=== PATIENT | female | born 1980 | race Caucasian/White ===

== ENCOUNTER 2016-06-21 18:03 | Inpatient (IN) | payer OTHER ==
[~2016-06-21] VITALS: Ht 157.5 cm; Wt 82.6 kg
[~2016-06-21 18:03] MED LIST: NAPR550 PO; ONDA1TAB16 PO; Z.0.NO CURRENT MEDS
[2016-06-21] MEDS ORDERED: DINOPROSTONE 10 MG VAG INSERT VAGINAL ONE (19:45)
[2016-06-21] MEDS ORDERED: SODIUM CHLORIDE 0.9% FLUSH 5 ML FLUSH IV FLUSH PRN (19:45)
[2016-06-21 20:12] VITALS: BP 113/59; PULSE 96
[2016-06-21 20:14] VITALS: RESP 18
[2016-06-21] MEDS ORDERED: OXYTOCIN 30 UNITS 500ML PREMIX IV ONE (20:15)
[2016-06-21] MEDS ORDERED: CITRIC ACID-SODIUM CITRATE LIQ 30 ML UDC PO SCH (20:15)
[2016-06-21] MEDS ORDERED: LACTATED RINGER'S 1000 ML BOLUS IV PRN (20:15)
[2016-06-21] MEDS ORDERED: NS 1000 ML XX PRN (20:15)
[2016-06-21] MEDS ORDERED: LIDOCAINE HCL 1% 50 ML VIAL INFIL PRN (20:15)
[2016-06-21] MEDS ORDERED: LIDOCAINE HCL 1% 50 ML VIAL I-DERMAL PRN (20:15)
[2016-06-21] MEDS ORDERED: NS 500 ML BOLUS IV PRN (20:15)
[2016-06-21] MEDS ORDERED: NS 1000 ML IV PRN (20:15)
[2016-06-21] MEDS ORDERED: MINERAL OIL 10 ML VIAL TOP PRN (20:15)
[2016-06-21] MEDS ORDERED: ONDANSETRON HCL 4 MG/2 ML VIAL IV PRN (20:15)
[2016-06-21] MEDS ORDERED: LACTATED RINGER'S 1000 ML IV SCH (20:15)
[2016-06-21 20:24] LABS: AUTOMATED NEUTROPHIL # 8.4 TH/MM3 (1.8-7.7); BASOPHIL % 0.3 % (0.0-2.0); EOSINOPHIL # 0.3 TH/MM3 (0-0.4); HEMATOCRIT 31.3 % (35.0-46.0); HEMO FLAGS DIFF FINAL; LYMPH % 11.6 % (9.0-44.0); LYMPHOCYTE # 1.2 TH/MM3 (1.0-4.8); MEAN CELL VOLUME 85.8 FL (80.0-100.0); MEAN CORPUSCULAR HEMOGLOBIN 28.9 PG (27.0-34.0); MEAN CORPUSCULAR HGB CONC 33.7 % (32.0-36.0); NEUT % 80.1 % (16.0-70.0); PLATELET COUNT 158 TH/MM3 (150-450); RED BLOOD COUNT 3.65 MIL/MM3 (4.00-5.30); RED CELL DISTRIBUTION WIDTH 14.7 % (11.6-17.2); WHITE BLOOD COUNT 10.5 TH/MM3 (4.0-11.0)
[2016-06-21 20:53] LABS: BACTERIA, URINE RARE /hpf; BLOOD, URINE NEG (NEG); COMMENT (UR) CULT NOT INDICATED; CULTURE IF INDICATED CULT NOT INDICATED; GLUCOSE,URINE NEG (NEG); KETONE, URINE NEG (NEG); MUCUS URINE FEW /lpf (OCC); NITRITE,URINE NEG (NEG); SQUAMOUS EPITHELIAL CELL URINE 3 /hpf (0-5); URINE COLOR YELLOW (YELLW/STRAW)
[2016-06-21] MEDS ORDERED: SODIUM CHLORIDE 0.9% FLUSH 5 ML FLUSH IV FLUSH SCH (21:00)
[2016-06-22 00:14] VITALS: RESP 18
[2016-06-22] MEDS ORDERED: fentaNYL 2MCG-BUPIV 0.125% INJ 100 ML ONE (00:14)
[2016-06-22] MEDS ORDERED: ePHEDrine/NS 50 MG/5 ML SYR IV PRN (00:30)
[2016-06-22] MEDS ORDERED: NO SYSTEM NARCOTICS XX PRN (00:30)
[2016-06-22] MEDS ORDERED: DO NOT ADMINISTER ANTICOAGULANTS XX PRN (00:30)
[2016-06-22] MEDS ORDERED: fentaNYL 2MCG-BUPIV 0.125% 100 ML EPIDURAL SCH (00:30)
[2016-06-22] MEDS ORDERED: OXYTOCIN 30 UNITS/NS 500ML PREMIX IV SCH (07:00)
--- NOTE | 2016-06-22 08:38 | MH ---
cc: ARTIE RICHARDSON MD DATE OF ADMISSION: 06/21/2016 HISTORY OF PRESENT ILLNESS She is 35 years old and 4, para 3, intrauterine at 39 weeks. care with [place] unremarkable. Group B strep negative. Estimated weight on ultrasound today is 8 pounds 12 ounces. KEN is 5.9. PAST OB HISTORY Significant for one vaginal delivery at 36 weeks. Baby was 7 pounds 15 ounces, in 2002 and 2005, a vaginal delivery at 38 weeks, baby was 9 pounds, in 2007 vaginal delivery at 37 weeks. The baby was 8 pounds. GYNECOLOGIC HISTORY Unremarkable. PAST MEDICAL HISTORY She denies hypertension, diabetes or asthma. She has a history of a goiter. PAST SURGICAL HISTORY She had a cholecystectomy in 2009 and a colonoscopy in 2012. SOCIAL HISTORY She denies toxic habits. MEDICATIONS She takes vitamins. ALLERGIES She has no known drug allergies. PHYSICAL EXAMINATION VITAL SIGNS: Her vital signs are stable. She is afebrile. Blood pressure is 122/62. She is 182 pounds. HEAD, HEART, CHEST, LUNGS: Exams are within normal limits. ABDOMEN: Abdomen is soft, nontender, gravid. CERVIX: Her cervical exam is 2 cm. The cervix is long, vertex presentation. ASSESSMENT/PLAN She is a 35-year-old 4, para 3, intrauterine at 39 weeks with a history of macrosomia and borderline oligohydramnios. The risks, benefits, alternatives of Cervidil cervical ripening followed by Pitocin augmentation have been explained to the patient and all of her questions have been answered. MD JOSEMANUEL Martins/TLL /3:21 PM /8:36 AM
--- NOTE | 2016-06-22 11:27 | PD.LABORPN ---
Subjective Subjective Has epidural in place, right side feels very numb Objective Objective Pelvic Exam: 3/50/-3, SROM, iupc placed (current RN exam 4-5/50/-2) Presentation ceph Membranes: spontaneous rupture with exam Uterine Contractions:q 3 min. MVU 180 FHT's: Category: I Baseline: 140 Reactive:y Variability:mod Decels: neg Assessment/Plan Assessment and Plan 35 yo with iup at 39+wk here for iol for h/o macrosomia and KEN of 5 in clinic yesterday 1) IOL- s/p cervidil overnight. SROM with iupc in place MVU 180, now on pitocin with good cervical change 2) GBS neg 3) Fetus Cat I tracing. Jessica Mckeon MD Jun 22, 2016 11:27
[2016-06-22] MEDS ORDERED: ACETAMINOPHEN 1000 MG/100 ML VIAL IV ONE (15:00)
[2016-06-22] MEDS ORDERED: AMPICILLIN/SULBAC 3 GM/NS 100 ML IV ONE ×2 (15:00)
--- NOTE | 2016-06-22 15:29 | PD.OB.DELI ---
Delivery Date: Jun 22, 2016 Anesthesia: Epidural Episiotomy: None Vaginal Delivery: Normal Presentation: Occiput anterior Nuchal Cord: x1, Other (body and arm cord) : Male One Minute : 7 Five Minute : 9 Weight: 7lb 15 oz Infant Care: Suctioned, Spontaneous crying, Responded to stimulation Placenta: Spontaneous delivery, Intact Laceration: No lacerations Additional Information ebl 250ml Jessica Mckeon MD Jun 22, 2016 15:29
[2016-06-22] MEDS ORDERED: SODIUM CHLORIDE 0.9% FLUSH 5 ML FLUSH IV PRN (15:30)
[2016-06-22] MEDS ORDERED: ZOLPIDEM TARTRATE 5 MG TAB PO PRN (16:00)
[2016-06-22] MEDS ORDERED: ONDANSETRON ODT 4 MG TAB PO PRN (16:00)
[2016-06-22] MEDS ORDERED: DOCUSATE SODIUM 50 MG/SENNA 8.6 MG TAB PO PRN (16:00)
[2016-06-22] MEDS ORDERED: MEASLES, MUMPS, RUBELLA VACCINE 0.5 ML VIAL SQ ONE (16:00)
[2016-06-22] MEDS ORDERED: ALUMINUM/MAGNESIUM/SIMETH 30 ML CUP PO PRN (16:00)
[2016-06-22] MEDS ORDERED: WITCH HAZEL 50%/GLYCERIN 12.5% 40 PAD JAR TOPICAL PRN (16:00)
[2016-06-22] MEDS ORDERED: BENZOCAINE 20% TOPICAL SPRAY 60 ML CAN TOPICAL PRN (16:00)
[2016-06-22] MEDS ORDERED: DIPHTH/TETANUS/ACEL PERTUSSIS (BOOSTER) 0.5 ML VIAL/PFS IM ONE (17:00)
[2016-06-22] MEDS ORDERED: LIDOCAINE 2% JELLY 30 ML TUBE ONE (20:23)
[2016-06-22] MEDS ORDERED: IBUP-232 PO (20:31)
--- NOTE | 2016-06-22 20:33 | HHI.DCPOC ---
Discharge Care Plan Diagnosis: (1) (spontaneous vaginal delivery) Report Symptoms to Your Doctor -Temperate above 100.5 degrees -Redness, of incision or excessive or foul smelling drainage -Unusual pain or calf pain -Increased vaginal bleeding -Painful or difficulty urinating -Feelings of extreme sadness or anxiety after 2 weeks Goals to Promote Your Health * To prevent worsening of your condition and complications * To maintain your health at the optimal level Directions to Meet Your Goals Take your medications as prescribed Follow your dietary instruction Follow activity as directed Ensure plenty of rest for recovery Drink fluids for hydration Keep your appointments as scheduled Take your immunizations and boosters as scheduled If your symptoms worsen call your PCP, if no PCP go to Urgent Care Center or Emergency Room Smoking is Dangerous to Your Health. Avoid second hand smoke Call the 24-hour crisis hotline for domestic abuse at Jessica Mckeon MD Jun 22, 2016 20:33
[2016-06-22] MEDS ORDERED: SODIUM CHLORIDE 0.9% FLUSH 5 ML FLUSH IV SCH (21:00)
[2016-06-22] MEDS ORDERED: AMPICILLIN-SULBACTAM INJ 3 GM in SODIUM CHLORIDE 0.9% INJ 100 ML IV ONE (21:00)
[2016-06-22] MEDS: IBUPROFEN 600 MG TAB PO PRN (21:09)
[2016-06-23] MEDS: IBUPROFEN 600 MG TAB PO PRN ×3 (08:14→21:58)
[2016-06-23] MEDS: ACETAMINOPHEN 325 MG TAB PO PRN ×3 (08:14→21:58)
--- NOTE | 2016-06-23 08:25 | HHI.OB ---
Subjective Post Day: 1 Remarks Patient c/o "numbness" and pain in right LE Objective Objective Remarks GENERAL: Well-nourished, well-developed patient. CARDIOVASCULAR: Regular rate and rhythm without murmurs, gallops, or rubs. RESPIRATORY: Breath sounds equal bilaterally. No accessory muscle use. ABDOMEN/GI: Abdomen soft, non-tender. Fundus: Firm, non-tender at umbilicus. GENITOURINARY: Light to moderate bleeding. EXTREMITIES: No cyanosis or edema, non-tender, without signs of DVT full ROM. Medications and IVs Current Medications Medications (Trade) Dose Ordered Sig/Neftali Route Start Time Stop Time Status Last Admin (NS Flush) 2 ml BID IV 06/22/16 21:00 (NS Flush) 2 ml UNSCH PRN IV 06/22/16 15:30 (Tylenol) 650 mg Q4H PRN PO 06/22/16 16:00 06/23/16 08:14 (Motrin) 600 mg Q6H PRN PO 06/22/16 16:00 06/23/16 08:14 (Americaine 20% Top Spr) 1 spray Q4H PRN TOPICAL 06/22/16 16:00 (Tucks Pads) 1 applic QID PRN TOPICAL 06/22/16 16:00 06/22/16 21:08 (Maryanne-Colace) 2 tab Q12H PRN PO 06/22/16 16:00 (Ambien) 5 mg HS PRN PO 06/22/16 16:00 (Mag-Al Plus Susp Liq) 15 ml Q8H PRN PO 06/22/16 16:00 (Zofran Odt) 4 mg Q6H PRN PO 06/22/16 16:00 Assessment/Plan Assessment and Plan PPD#1, , c/o right LE numbness and pain, order doppler study . Discharge Planning Does not meet criteria Attending Attestation Seen by Iker Ridley MD Jun 23, 2016 08:25
--- NOTE | 2016-06-23 12:14 | RADRPT ---
EXAM DATE/TIME: 06/23/2016 09:36 [facility] COMPARISON: No previous studies available for comparison. INDICATIONS : Pain in right lower extremity. MEDICAL HISTORY : . Thyroid disease. GERD. Asthma. Migraine. SURGICAL HISTORY : Cholecystectomy. Colonoscopy. ENCOUNTER: Initial ACUITY: 1 day PAIN SCORE: 3/10 LOCATION: Right leg. TECHNIQUE: Venous ultrasound of the leg was performed from the inguinal ligament to the proximal calf. Real-jaylin e, color Doppler and spectral tracing, compression and augmentation techniques were used. FINDINGS: There is normal compressibility of the deep venous system from the inguinal region to the proximal ca lf. No echogenic clot is seen in the lumen of the common femoral, femoral, popliteal, and posterior tibial veins. There is a normal response of the venous system to proximal and distal augmentation an d respiration. CONCLUSION: Negative exam with no evidence of deep venous thrombosis. Reji Talley MD on June 23, 2016 at 12:12 Board Certified Radiologist. This report was verified electronically.
[2016-06-24] MEDS: ACETAMINOPHEN 325 MG TAB PO PRN (04:28)
[2016-06-24] MEDS: IBUPROFEN 600 MG TAB PO PRN (09:25)
--- NOTE | 2016-06-24 10:06 | HHI.OB ---
Subjective Post Day: 2 Remarks PPD#2, Improved from yesterday, doppler of RLE was normal Objective Objective Remarks GENERAL: Well-nourished, well-developed patient. CARDIOVASCULAR: Regular rate and rhythm without murmurs, gallops, or rubs. RESPIRATORY: Breath sounds equal bilaterally. No accessory muscle use. ABDOMEN/GI: Abdomen soft, non-tender. Fundus: Firm, non-tender at umbilicus. GENITOURINARY: Light to moderate bleeding. EXTREMITIES: No cyanosis or edema, non-tender, without signs of DVT full ROM. Medications and IVs Current Medications Medications (Trade) Dose Ordered Sig/Neftali Route Start Time Stop Time Status Last Admin (NS Flush) 2 ml BID IV 06/22/16 21:00 (NS Flush) 2 ml UNSCH PRN IV 06/22/16 15:30 (Tylenol) 650 mg Q4H PRN PO 06/22/16 16:00 06/24/16 04:28 (Motrin) 600 mg Q6H PRN PO 06/22/16 16:00 06/24/16 09:25 (Americaine 20% Top Spr) 1 spray Q4H PRN TOPICAL 06/22/16 16:00 (Tucks Pads) 1 applic QID PRN TOPICAL 06/22/16 16:00 06/22/16 21:08 (Maryanne-Colace) 2 tab Q12H PRN PO 06/22/16 16:00 (Ambien) 5 mg HS PRN PO 06/22/16 16:00 (Mag-Al Plus Susp Liq) 15 ml Q8H PRN PO 06/22/16 16:00 (Zofran Odt) 4 mg Q6H PRN PO 06/22/16 16:00 Assessment/Plan Assessment and Plan PPD#2; stable , normal doppler of RLE; improved, plan discharge today. Discharge Planning Meets criteria Iker Mcconnell MD Jun 24, 2016 10:06
--- NOTE | 2016-06-24 10:31 | PD.CIRC ---
Circumcision Procedure Note Procedure: Circumcision Pre-procedure diagnosis: circumcision Post-procedure diagnosis: circumcision Informed Consent: The risks, benefits, indications, potential complications, and alternatives were explained to the patient/family and informed consent obtained. The baby was brought to the procedure room where a time-out was done to ID the patient and the procedure. Performing Physician: Iker Mcconnell Anesthesia used: 1% lidocaine injected Type of block: dorsal penile block Device used: Mogen Description: The baby was prepped and draped in a sterile fashion. The procedure followed standard technique. The baby tolerated the procedure well without complication. Findings: normal external genitalia Estimated blood loss: none Specimen: No Iker Mcconnell MD Jun 24, 2016 10:31
== END 2016-06-24 13:30 | disposition home or self-care (01) | DRG 775 ==
LOC: H2EA 18:03 → H1EA 06-22 20:48
PROVIDERS: ADMIT Obstetrics & Gynecology; ATTEND Obstetrics & Gynecology
PROC: 10E0XZZ Delivery of Products of Conception, External Approach (ICD-10-PCS; principal; 2016-06-22)
PROC: 00HU33Z Insertion of Infusion Device into Spinal Canal, Percutaneous Approach (ICD-10-PCS; 2016-06-22)
PROC: 3E0R3CZ (ICD-10-PCS; 2016-06-22)
DX: O69.81X0 Labor and delivery complicated by cord around neck, without compression, not applicable or unspecified (principal); E04.9 Nontoxic goiter, unspecified; O09.523 Supervision of elderly multigravida, third trimester; Z3A.39 39 weeks gestation of pregnancy; Z37.0 Single live birth; Z90.49 Acquired absence of other specified parts of digestive tract
CPT/HCPCS: 59025; 81001; 85025; 93971; J0295; J3010; J7120

== ENCOUNTER 2017-04-20 11:28 | Emergency (ER) | payer OTHER ==
[~2017-04-20] VITALS: Ht 162.6 cm; Wt 67.0 kg
[~2017-04-20 11:28] MED LIST changes: +IBUP-232 PO; -NAPR550 PO; -ONDA1TAB16 PO
[2017-04-20 11:44] VITALS: BP 102/62; PULSE 59; RESP 16; O2SAT 96
[2017-04-20 11:53] VITALS: BP 102/62; PULSE 60; RESP 16; TEMP 98; O2SAT 100
[2017-04-20] MEDS ORDERED: SODIUM CHLOR 0.9% 1000 ML INJ 1,000 ML IV ONE (12:00)
[2017-04-20 12:34] LABS: AUTOMATED NEUTROPHIL # 2.3 TH/MM3 (1.8-7.7); BASOPHIL % 0.8 % (0.0-2.0); EOSINOPHIL # 0.6 TH/MM3 (0-0.4); LYMPH % 36.8 % (9.0-44.0); LYMPHOCYTE # 1.9 TH/MM3 (1.0-4.8); MEAN CORPUSCULAR HEMOGLOBIN 30.9 PG (27.0-34.0); MEAN CORPUSCULAR HGB CONC 34.3 % (32.0-36.0); MEAN PLATELET VOLUME 9.2 FL (7.0-11.0); MONO % 5.4 % (0.0-8.0); MONOCYTE # 0.3 TH/MM3 (0-0.9); PLATELET COUNT 181 TH/MM3 (150-450); RED BLOOD COUNT 3.89 MIL/MM3 (4.00-5.30); RED CELL DISTRIBUTION WIDTH 12.9 % (11.6-17.2); WHITE BLOOD COUNT 5.1 TH/MM3 (4.0-11.0)
[2017-04-20 12:53] LABS: ALKALINE PHOSPHATASE 70 U/L (45-117); ALT (GPT) 27 U/L (10-53); TOTAL BILIRUBIN ADULT 0.3 MG/DL (0.2-1.0); TOTAL PROTEIN 5.6 GM/DL (6.4-8.2)
[2017-04-20 12:58] LABS: AST (GOT) 18 U/L (15-37); BICARBONATE 26.9 MEQ/L (21.0-32.0); BLOOD UREA NITROGEN 7 MG/DL (7-18); CHLORIDE 114 MEQ/L (98-107); CREATININE 0.52 MG/DL (0.50-1.00); GLOMERULAR FILTRATION RATE 133 ML/MIN (>89); GLUCOSE,RANDOM 88 MG/DL (74-106); SODIUM (NA) 146 MEQ/L (136-145)
--- NOTE | 2017-04-20 14:38 | PD ---
HPI Chief Complaint: Medical Clearance Time Seen by Provider: 11:37 Travel History International Travel<30 days: No Contact w/Intl Traveler<30days: No Traveled to known affect area: No History of Present Illness HPI Patient is a 36-year-old female who comes in after having an endoscopy today. Per the director of marketing and promotions, when they woke her up from the propofol, she was having jerking movements. There are concerned for seizure, gave her Versed and sent her here. Patient is sleeping. She is here with her . Her states that she was feeling fine prior to the procedure. He says this has never happened before. PFSH Past Medical History Asthma: Yes GERD: Yes Migraines: Yes Thyroid Disease: Yes Tetanus Vaccination: Unknown Influenza Vaccination: No ?: Not : 3 Para: 3 Past Surgical History Cholecystectomy: Yes Social History Alcohol Use: No Tobacco Use: No Substance Use: No Allergies-Medications (Allergen,Severity, Reaction): Coded Allergies: codeine (Unverified Allergy, Severe, 04/20/17) egg (Verified Allergy, Unknown, 04/20/17) latex (Verified Allergy, Unknown, 04/20/17) red dye (Verified Allergy, Unknown, 04/20/17) Reported Meds & Prescriptions Reported Meds & Active Scripts Active Ibuprofen 600 Mg Tab 600 Mg PO Q6H PRN Review of Systems ROS Limitations: Other: (given Versed) Physical Exam Narrative GENERAL: Lethargic. SKIN: Focused skin assessment warm/dry. No wounds. HEAD: Atraumatic. Normocephalic. EYES: Pupils equal and round. No scleral icterus. Extraocular movements intact. ENT: Mucous membranes pink and moist. NECK: Trachea midline. No JVD. CARDIOVASCULAR: Regular rate and rhythm. No murmur appreciated. RESPIRATORY: No accessory muscle use. Clear to auscultation. Breath sounds equal bilaterally. GASTROINTESTINAL: Abdomen soft, non-tender, nondistended. MUSCULOSKELETAL: No obvious deformities. No clubbing. No cyanosis. No edema. NEUROLOGICAL: Drowsy. No obvious cranial nerve deficits. Motor grossly within normal limits. Occasional jerky movements. Data Data Last Documented VS Vital Signs Date Time Temp Pulse Resp B/P (MAP) Pulse Ox O2 Delivery O2 Flow Rate FiO2 04/20/17 15:45 70 16 110/72 (85) 100 Room Air 04/20/17 11:53 98.0 2.00 Orders Orders Sodium Chlor 0.9% 1000 Ml Inj (Ns 1000 M (04/20/17 12:00) Complete Blood Count With Diff (04/20/17 11:58) Comprehensive Metabolic Panel (04/20/17 11:58) Creatine Kinase (Cpk) (04/20/17 11:59) Ed Discharge Order (04/20/17 14:40) Labs Laboratory Tests Test 04/20/17 12:18 White Blood Count 5.1 TH/MM3 Red Blood Count 3.89 MIL/MM3 Hemoglobin 12.0 GM/DL Hematocrit 35.0 % Mean Corpuscular Volume 90.0 FL Mean Corpuscular Hemoglobin 30.9 PG Mean Corpuscular Hemoglobin Concent 34.3 % Red Cell Distribution Width 12.9 % Platelet Count 181 TH/MM3 Mean Platelet Volume 9.2 FL Neutrophils (%) (Auto) 46.0 % Lymphocytes (%) (Auto) 36.8 % Monocytes (%) (Auto) 5.4 % Eosinophils (%) (Auto) 11.0 % Basophils (%) (Auto) 0.8 % Neutrophils # (Auto) 2.3 TH/MM3 Lymphocytes # (Auto) 1.9 TH/MM3 Monocytes # (Auto) 0.3 TH/MM3 Eosinophils # (Auto) 0.6 TH/MM3 Basophils # (Auto) 0.0 TH/MM3 CBC Comment DIFF FINAL Differential Comment Blood Urea Nitrogen 7 MG/DL Creatinine 0.52 MG/DL Random Glucose 88 MG/DL Total Protein 5.6 GM/DL Albumin 3.0 GM/DL Calcium Level 8.0 MG/DL Alkaline Phosphatase 70 U/L Aspartate Amino Transf (AST/SGOT) 18 U/L Alanine Aminotransferase (ALT/SGPT) 27 U/L Total Bilirubin 0.3 MG/DL Sodium Level 146 MEQ/L Potassium Level 4.0 MEQ/L Chloride Level 114 MEQ/L Carbon Dioxide Level 26.9 MEQ/L Anion Gap 5 MEQ/L Estimat Glomerular Filtration Rate 133 ML/MIN Total Creatine Kinase 92 U/L [facility] Medical Decision Making Medical Screen Exam Complete: Yes Emergency Medical Condition: Yes Medical Record Reviewed: Yes Differential Diagnosis Medication reaction versus electrolyte abnormality versus seizure Narrative Course Patient is a 36-year-old female that comes in after an endoscopy dated jerking movements. I discussed with her the need for CT, he is comfortable with waiting and watching to see how she is. She is currently sleeping from the Versed. IV established, labs sent. Labs show no acute abnormalities. Patient given IV fluids. the jerking movements stopped. She is awake and alert , has no complaints at this time. I believe her symptoms were from the anesthesia. Patient advised follow-up with her primary doctor. Advised to return to the ED as needed for any worsening symptoms. Diagnosis Primary Impression: Drug reaction Qualified Codes: T88.7XXA - Unspecified adverse effect of drug or medicament, initial encounter Patient Instructions: Adverse Drug Reaction (ED), General Instructions Additional Instructions: Follow up with your doctors. Return to the ED as needed for any worsening symptoms. Disposition: 01 DISCHARGE HOME Condition: Stable Carola Turner MD Apr 20, 2017 14:38
[2017-04-20 15:45] VITALS: BP 110/72; PULSE 70; RESP 16; O2SAT 100
== END 2017-04-20 15:48 | disposition home or self-care (01) ==
LOC: NEPE 11:28
DX: T41.295A Adverse effect of other general anesthetics, initial encounter (principal); G25.3 Myoclonus; J45.909 Unspecified asthma, uncomplicated; K21.9 Gastro-esophageal reflux disease without esophagitis; E07.9 Disorder of thyroid, unspecified; Z88.5 Allergy status to narcotic agent
CPT/HCPCS: 80053; 82550; 85025; 96360; 99284; J7030